=== PATIENT | female | born 1970 | race African-American/Black ===

== ENCOUNTER 2016-06-14 03:22 | Emergency (ER) | payer OTHER ==
[~2016-06-14] VITALS: Ht 157.5 cm; Wt 92.5 kg
--- NOTE | 2016-06-14 03:22 | NUR ---
Patient [facility] and taken to [facility]
[2016-06-14 03:26] VITALS: BP 122/95
--- NOTE | 2016-06-14 03:27 | NUR ---
Dr. William evaluating patient at bedside.
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
--- NOTE | 2016-06-14 03:40 | NUR ---
Patient to CT via wheelchair per tech.
--- NOTE | 2016-06-14 04:29 | NUR ---
PATIENT BIB [facility]. PATIENT EXAMINED BY DR. GUADARRAMA. PATIENT MEDICALLY CLEARED AND RELEASED IN CUSTODY IN STABLE CONDITION. ORIGINAL PRE-BOOK FORM GIVEN TO [facility] OFFICER.
[2016-06-14 04:34] VITALS: BP 122/95
== END 2016-06-14 04:29 ==
LOC: MED 03:22
DX: S09.90XA Unspecified injury of head, initial encounter (principal); R51 Headache; V89.2XXA Person injured in unspecified motor-vehicle accident, traffic, initial encounter; Y93.89 Activity, other specified; Y92.89 Other specified places as the place of occurrence of the external cause; Y99.8 Other external cause status

== ENCOUNTER 2016-06-15 15:30 | Emergency (ER) | payer OTHER ==
[~2016-06-15] VITALS: Ht 160 cm; Wt 86.2 kg
[2016-06-15 15:50] VITALS: BP 143/77
--- NOTE | 2016-06-15 16:58 | NUR ---
PT TO BED 3 AT THIS TIME,
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
--- NOTE | 2016-06-15 17:33 | NUR ---
ER MD DR. BLANC EVALUATING PT AT BEDSIDE.
[2016-06-15 17:42] VITALS: BP 140/74
--- NOTE | 2016-06-15 17:42 | NUR ---
Patient discharged with v/s stable. Written and verbal after care instructions given and explained. Patient alert, oriented and verbalized understanding of instructions. Ambulatory with to car. All questions addressed prior to discharge. ID band removed. Patient advised to follow up with PMD. Rx of MOTRIN 800MG & FLEXERIL 10MG TAB given. Patient educated on indication of medication including possible reaction and side effects. Opportunity to ask questions provided and answered.
== END 2016-06-15 17:42 | disposition home or self-care (01) ==
LOC: MED 15:30
DX: S13.4XXA Sprain of ligaments of cervical spine, initial encounter (principal); R03.0 Elevated blood-pressure reading, without diagnosis of hypertension; V89.2XXA Person injured in unspecified motor-vehicle accident, traffic, initial encounter; Y93.89 Activity, other specified; Y92.89 Other specified places as the place of occurrence of the external cause; Y99.8 Other external cause status

== ENCOUNTER 2016-07-31 23:04 | Emergency (ER) | payer OTHER ==
[~2016-07-31] VITALS: Ht 157.5 cm; Wt 90.7 kg
[2016-07-31 23:05] VITALS: BP 152/90
--- NOTE | 2016-07-31 23:05 | NUR ---
AMBULATED TO ER BED 7
--- NOTE | 2016-07-31 23:15 | NUR ---
46 YEAR OLD FEMALE CAME IN WITH ABDOMINAL PAIN 02/10 SINCE 4PM. VOMITING NOTED. ONLY SOFT STOOLS, NO DIARRHEA. SEEN BY DR. GARCIA AT BEDSIDE.
[2016-07-31] MEDS ORDERED: ONDANSETRON 4 MG ODT PO ONE (23:20)
[2016-07-31] MEDS ORDERED: MORPHINE SULFATE 2 MG/ML SYR IVP ONE (23:35)
--- NOTE | 2016-07-31 23:37 | NUR ---
WENT FOR XRAY PER WHEELCHAIR.
--- NOTE | 2016-08-01 01:00 | NUR ---
ULTRASOUND DONE AT BEDSIDE BY DR. GA.
[2016-08-01] MEDS ORDERED: ALUMINUM HYD/MAG/SIMETHICONE 30 ML UDC PO ONE (01:15)
[2016-08-01] MEDS ORDERED: LIDOCAINE VISCOUS 2% 20 ML UDC PO ONE (01:15)
--- NOTE | 2016-08-01 01:31 | NUR ---
FOR CAT SCAN OF ABDOMEN/PELVIS WITH CONTRAST, PROCEDURE EXPLAINED BY DR. GA AT BEDSIDE. CONSENT SIGNED BY THE PATIENT.
[2016-08-01] MEDS ORDERED: HYDROcodone/APAP 10/325 MG 1 TAB TAB PO ONE (02:55)
[2016-08-01 04:10] VITALS: BP 135/79
--- NOTE | 2016-08-01 04:10 | NUR ---
Patient discharged with v/s stable. Written and verbal after care instructions given and explained WITH RX KESTEPHANIE AND NORCO. Patient verbalized understanding. Ambulatory with steady gait. All questions addressed prior to discharge. Advised to follow up with PMD. DISCHARGED PER DR. GA.
== END 2016-08-01 04:10 | disposition home or self-care (01) ==
LOC: MED 23:04
DX: N12 Tubulo-interstitial nephritis, not specified as acute or chronic (principal)
CPT/HCPCS: 36415; 74000; 74177; 80053; 81001; 82150; 83690; 84703; 85025; 87086; 96374; 99285; J2270; Q9967; S0119

== ENCOUNTER 2017-11-09 17:48 | Emergency (ER) | payer OTHER ==
[~2017-11-09] VITALS: Ht 157.5 cm; Wt 95.7 kg
[2017-11-09 18:00] VITALS: BP 128/87
--- NOTE | 2017-11-09 18:05 | NUR ---
patient to lobby to wait available bed with steady gait. vss.
--- NOTE | 2017-11-09 18:40 | NUR ---
pt wc to bed 9
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
--- NOTE | 2017-11-09 19:56 | NUR ---
GAVE REPORT TO BERNICE GREY
--- NOTE | 2017-11-09 20:00 | NUR ---
PATIENT RESTING AT THIS TIME. NO SIGNS OF DISTRESS.
--- NOTE | 2017-11-09 20:01 | NUR ---
Dr. Ventura evaluating patient at bedside.
[2017-11-09] MEDS ORDERED: IBUPROFEN 600 MG TAB PO ONE (20:45)
--- NOTE | 2017-11-09 20:50 | NUR ---
X-Ray at bedside.
--- NOTE | 2017-11-09 21:28 | NUR ---
PT TAKEN TO CT
--- NOTE | 2017-11-09 21:43 | NUR ---
PT RETURN FROM CT
[2017-11-09 23:10] VITALS: BP 118/84
== END 2017-11-09 23:10 | disposition home or self-care (01) ==
LOC: MED 17:48
DX: S60.222A Contusion of left hand, initial encounter (principal); S80.02XA Contusion of left knee, initial encounter; S80.01XA Contusion of right knee, initial encounter; M54.5 Low back pain; W01.0XXA Fall on same level from slipping, tripping and stumbling without subsequent striking against object, initial encounter; Y93.89 Activity, other specified; Y99.8 Other external cause status; Y92.512 Supermarket, store or market as the place of occurrence of the external cause
CPT/HCPCS: 72125; 72131; 73130; 73562; 81002; 81025; 99284

== ENCOUNTER 2021-01-02 10:02 | Emergency (ER) | payer OTHER ==
[~2021-01-02] VITALS: Ht 160 cm; Wt 99.8 kg
--- NOTE | 2021-01-02 10:10 | NUR ---
PT W/C ASSISTED TO BED 3
[2021-01-02 10:11] VITALS: BP 131/76
--- NOTE | 2021-01-02 10:13 | NUR ---
50 Y/O FEMALE C/O LEFT ANKLE PAIN 11/10 DESCRIBES SHARP UNABLE TO BEAR WEIGHT S/P FALL [id number] GO AT HOME. DENIES FEVER/CHILLS, DENIES N/V. DENIES PMH NKA
--- NOTE | 2021-01-02 10:23 | NUR ---
DR. SALAS AT PT BEDSIDE FOR FURTHER EVALUATION.
[2021-01-02] MEDS ORDERED: KETOROLAC 30 MG/ML VIAL IM ONE (10:25)
--- NOTE | 2021-01-02 10:34 | NUR ---
PT TAKEN XR VIA W/C.
--- NOTE | 2021-01-02 11:24 | NUR ---
AT PT BEDSIDE FOR RE-ASSESSMENT.
--- NOTE | 2021-01-02 11:24 | NUR ---
Mone singh in [facility] - 01/02/21 at 1148 by [email or web address] PT AT PT BEDSIDE FOR RE-ASSESSMENT.
[2021-01-02] MEDS ORDERED: ACET-10509 PO ×2 (11:31→11:45)
[2021-01-02] MEDS ORDERED: IBUP-2230 PO ×2 (11:31→11:45)
--- NOTE | 2021-01-02 11:48 | NUR ---
EMT AT PT BEDSIDE FOR JENNIFER [employer]AP [employer] TRAINING.
[2021-01-02 11:53] VITALS: BP 126/74
--- NOTE | 2021-01-02 11:55 | NUR ---
Patient discharged with v/s stable. Written and verbal after care instructions given ANKLE SPRAIN and explained. Patient alert, oriented and verbalized understanding of instructions. Ambulatory with to car. All questions addressed prior to discharge. ID band removed. Patient advised to follow up with PMD. Rx of IBUPROFEN AND TYNENOL PO given. Patient educated on indication of medication including possible reaction and side effects. Opportunity to ask questions provided and answered.
== END 2021-01-02 11:55 | disposition home or self-care (01) ==
LOC: MED 10:02
DX: S93.402A Sprain of unspecified ligament of left ankle, initial encounter (principal); Z79.899 Other long term (current) drug therapy; X58.XXXA Exposure to other specified factors, initial encounter; Y93.01 Activity, walking, marching and hiking; Y92.89 Other specified places as the place of occurrence of the external cause; Y99.8 Other external cause status
CPT/HCPCS: 73590; 73610; 96372; 99284; J1885

== ENCOUNTER 2023-01-06 19:17 | Emergency (ER) | payer OTHER ==
[~2023-01-06] VITALS: Ht 160 cm; Wt 96.6 kg
[~2023-01-06 19:17] MED LIST: ACET-10509 PO; IBUP-2230 PO
[2023-01-06 20:17] VITALS: BP 160/89; PULSE 73; RESP 18; TEMP 98.4; O2SAT 100
[2023-01-06] MEDS ORDERED: MORPHINE SULFATE 2 MG/ML SYR IVP ONE (20:45)
[2023-01-06] MEDS ORDERED: FAMOTIDINE 20 MG/2 ML VIAL IVP ONE (20:45)
[2023-01-06] MEDS ORDERED: ONDANSETRON 4 MG/2 ML VIAL IVP ONE (20:45)
[2023-01-06 21:08] LABS: BASOPHILS # (AUTO) 0.1 K/uL (0.00-0.22); BASOPHILS % (AUTO) 0.6 % (0.0-2.0); EOSINOPHILS % (AUTO) 0.2 % (0.0-4.0); HEMATOCRIT 38.4 % (36-48); HEMOGLOBIN 12.6 g/dL (12.0-16.0); LYMPHOCYTES # (AUTO) 1.7 K/uL (2.5-16.5); LYMPHOCYTES % (AUTO) 16.3 % (20.5-51.1); MEAN CORPUSCULAR HEMOGLOBIN 29 pg (27-31); MEAN CORPUSCULAR HGB CONC 33 g/dL (33-37); MEAN CORPUSCULAR VOLUME 87.1 fL (80-94); MONOCYTES # (AUTO) 0.6 K/uL (0.8-1.0); MONOCYTES % (AUTO) 5.6 % (1.7-9.3); NEUTROPHILS # (AUTO) 7.9 K/uL (1.8-7.7); NEUTROPHILS % (AUTO) 77.3 % (42.2-75.2); PLATELET COUNT (AUTO) 215 K/uL (140-450); RED BLOOD CELL COUNT(AUTO) 4.41 MIL/uL (4.20-5.40); RED CELL DISTRIBUTION WIDTH 16.1 % (11.6-13.7); WHITE BLOOD COUNT (AUTO) 10.3 K/uL (4.8-10.8)
[2023-01-06 21:11] VITALS: BP 165/83; PULSE 68; RESP 21; O2SAT 95
[2023-01-06 21:43] LABS: ALANINE AMINOTRANSFERASE 21 U/L (12-78); ALKALINE PHOSPHATASE 50 U/L (50-136); ANION GAP 13.3 (8-16); ASPARTATE AMINOTRANSFERASE 18 U/L (15-37); CALCIUM 8.9 mg/dL (8.5-10.1); CARBON DIOXIDE 25.4 mmol/L (21-32); CHLORIDE 101 mmol/L (98-107); GFR ARICAN-AMERICAN 75 mL/min (>90); GFR NON ARICAN-AMERICAN 62 mL/min (>90); GLUCOSE 100 mg/dL (74-106); LIPASE 32 U/L (73-393); POTASSIUM 3.7 mmol/L (3.5-5.1); SODIUM SERUM 136 mmol/L (136-145); TOTAL BILIRUBIN 0.6 mg/dL (0.0-1.0); TOTAL PROTEIN, SERUM 7.7 g/dL (6.4-8.2); UREA NITROGEN, BLOOD 10 mg/dL (7-18)
[2023-01-06] MEDS ORDERED: ALUMINUM HYD/MAG/SIMETHICONE 30 ML UDC PO ONE (21:55)
[2023-01-06] MEDS ORDERED: OMEP40EC23 PO (22:34)
[2023-01-06] MEDS ORDERED: ALUM355S5 PO (22:34)
[2023-01-06] MEDS ORDERED: SUCR1TAB35 PO (22:34)
[2023-01-06] MEDS ORDERED: ONDA-188 PO (22:34)
== END 2023-01-06 22:50 | disposition home or self-care (01) ==
LOC: MED 19:17
DX: K21.9 Gastro-esophageal reflux disease without esophagitis (principal); Z79.899 Other long term (current) drug therapy
CPT/HCPCS: 36415; 71045; 80053; 83690; 84484; 85025; 93005; 96374; 96375; 99285; J2270; J2405; J3490

== ENCOUNTER 2023-05-28 08:15 | Inpatient (IN) | payer OTHER ==
[~2023-05-28] VITALS: Ht 160 cm; Wt 97.5 kg
[~2023-05-28 08:15] MED LIST changes: +MAG-43 PO; +OMEP40EC23 PO; +ONDA-188 PO; +SUCR1TAB35 PO
[2023-05-28 08:20] VITALS: BP 145/83; PULSE 72; RESP 18; TEMP 97.3; O2SAT 99
[2023-05-28] MEDS ORDERED: KETOROLAC 30 MG/ML VIAL IVP ONE (08:40)
[2023-05-28] MEDS ORDERED: ONDANSETRON 4 MG/2 ML VIAL IVP ONE ×2 (08:40→12:30)
[2023-05-28 08:59] LABS: BASOPHILS % (AUTO) 0.2 % (0.0-2.0); EOSINOPHILS # (AUTO) 0.1 K/uL (0-0.4); EOSINOPHILS % (AUTO) 1.3 % (0.0-4.0); HEMATOCRIT 37.3 % (36-48); HEMOGLOBIN 12.4 g/dL (12.0-16.0); LYMPHOCYTES # (AUTO) 1.3 K/uL (2.5-16.5); LYMPHOCYTES % (AUTO) 15.3 % (20.5-51.1); MEAN CORPUSCULAR HEMOGLOBIN 28 pg (27-31); MEAN CORPUSCULAR HGB CONC 33 g/dL (33-37); MEAN CORPUSCULAR VOLUME 84.9 fL (80-94); MONOCYTES # (AUTO) 0.5 K/uL (0.8-1.0); MONOCYTES % (AUTO) 6.1 % (1.7-9.3); NEUTROPHILS # (AUTO) 6.6 K/uL (1.8-7.7); NEUTROPHILS % (AUTO) 77.1 % (42.2-75.2); PLATELET COUNT (AUTO) 238 K/uL (140-450); RED BLOOD CELL COUNT(AUTO) 4.39 MIL/uL (4.20-5.40); RED CELL DISTRIBUTION WIDTH 17.2 % (11.6-13.7); WHITE BLOOD COUNT (AUTO) 8.6 K/uL (4.8-10.8)
[2023-05-28 09:00] VITALS: O2SAT 99
[2023-05-28] MEDS: NACL 0.9% 1,000 ML IV SCH ×3 (09:28→13:40)
[2023-05-28 09:41] LABS: APPEARANCE,URINE SL CLOUDY (CLEAR); BILIRUBIN,URINE 1+ (NEGATIVE); BLOOD, URINE 3+ (NEGATIVE); COLOR,URINE RED (YELLOW); LEUKOCYTE ESTERASE ,URINE 1+ (NEGATIVE); NITRITE, URINE POSITIVE (NEGATIVE); PROTEIN,URINE 2+ (NEGATIVE); UGLUCOSE NEGATIVE (NEGATIVE); UROBILINOGEN,URINE 0.2 EU/dL (0.2 - 1)
[2023-05-28 09:43] LABS: ANION GAP 12.1 (8-16); CALCIUM 8.5 mg/dL (8.5-10.1); CARBON DIOXIDE 23.7 mmol/L (21-32); CREATININE 0.8 mg/dL (0.6-1.3); POTASSIUM 3.8 mmol/L (3.5-5.1)
[2023-05-28 09:47] LABS: ICTOTEST NEGATIVE (NEGATIVE)
[2023-05-28 09:49] LABS: ALBUMIN 3.5 g/dL (3.4-5.0); BILIRUBIN,DIRECT 0.1 mg/dL (0.0-0.3); TOTAL BILIRUBIN 0.3 mg/dL (0.0-1.0); TOTAL PROTEIN, SERUM 8.2 g/dL (6.4-8.2)
[2023-05-28 09:49] LABS: RBC,URINE >100 /HPF (0-5)
[2023-05-28 09:50] LABS: BACTERIA,URINE 1+ /HPF (None Seen); MUCUS,URINE None Seen /LPF (None Seen); SQUAMOUS EPITHELIAL CELL,UR 0-3 (FEW) /LPF (0-3 (FEW))
[2023-05-28] MEDS ORDERED: PIPERACILLIN/TAZOBACTAM 3.375 GM in DEXTROSE 5% 50 ML IV ONE (12:15)
[2023-05-28] MEDS ORDERED: PIPERACILLIN/TAZOBACTAM 3.375 GM VIAL IV ONE (12:25)
[2023-05-28] MEDS ORDERED: MORPHINE SULFATE 4 MG/ML SYR IVP ONE (12:30)
[2023-05-28 13:10] LABS: LACTIC ACID 0.9 mmol/L (0.4-2.0)
[2023-05-28] MEDS ORDERED: CLAR500T99 PO (13:26)
[2023-05-28] MEDS ORDERED: ONDANSETRON 4 MG/2 ML VIAL IVP PRN ×2 (13:40→17:25)
[2023-05-28] MEDS ORDERED: ZOLPIDEM 5 MG TAB PO PRN (13:40)
[2023-05-28] MEDS ORDERED: NEOSTIGMINE 1:1000 10 MG/10 ML VIAL ONE (16:00)
[2023-05-28] MEDS ORDERED: SEVOFLURANE 250 ML BTL INH ONE (16:00)
[2023-05-28] MEDS ORDERED: GLYCOPYRROLATE 0.2 MG/ML VIAL ONE (16:00)
[2023-05-28] MEDS ORDERED: LIDOCAINE/EPI 1% 1:100000 20 ML VIAL INJ ONE (16:11)
[2023-05-28] MEDS ORDERED: BUPIVACAINE-MPF 0.25% 30 ML VIAL INJ ONE (16:11)
[2023-05-28] MEDS ORDERED: ceFAZolin 2,000 MG VIAL ONE (16:12)
[2023-05-28] MEDS ORDERED: ROCURONIUM 50 MG/5 ML VIAL IV ONE (16:21)
[2023-05-28] MEDS ORDERED: PROPOFOL 200 MG/20 ML VIAL IV ONE (16:21)
[2023-05-28] MEDS ORDERED: SUCCINYLCHOLINE CHLORIDE 200 MG/10 ML VIAL IVP ONE (16:21)
[2023-05-28] MEDS ORDERED: MIDAZOLAM 2 MG/2 ML VIAL ONE (16:22)
[2023-05-28] MEDS ORDERED: HYDROmorphone PFS 2 MG/ML SYR ONE (16:23)
[2023-05-28] MEDS ORDERED: DEXAMETHASONE 4 MG/ML VIAL ONE (16:38)
[2023-05-28] MEDS ORDERED: ONDANSETRON 4 MG/2 ML VIAL ONE (16:38)
[2023-05-28] MEDS ORDERED: KETOROLAC 60 MG/2 ML VIAL IM ONE (17:14)
[2023-05-28] MEDS ORDERED: HYDROmorphone 1 MG/ML AMP IVP PRN (17:25)
[2023-05-28 18:00] VITALS: BP 154/82; PULSE 67; RESP 18; TEMP 97.2; O2SAT 98
[2023-05-28] MEDS: HYDROcodone/APAP 5/325 MG 1 TAB TAB PO PRN ×2 (18:37→23:15)
[2023-05-28 19:00] VITALS: PULSE 62; O2SAT 99
[2023-05-28 20:00] VITALS: BP 154/76; PULSE 62; RESP 18; TEMP 97.4; O2SAT 99
[2023-05-29 04:00] VITALS: BP 146/49; PULSE 67; RESP 18; TEMP 96.4; O2SAT 99
[2023-05-29] MEDS: HYDROcodone/APAP 5/325 MG 1 TAB TAB PO PRN ×4 (05:22→20:37)
[2023-05-29 08:00] VITALS: BP 165/75; PULSE 59; RESP 18; TEMP 97.4; O2SAT 100; O2SAT 99
[2023-05-29] MEDS: LEVOFLOXACIN 750 MG/D5W PREMIX 150 ML IV SCH (09:56)
[2023-05-29] MEDS: DOCUSATE SODIUM 100 MG GELCAP PO SCH (09:57)
[2023-05-29 12:00] VITALS: BP 165/75; PULSE 59; RESP 18; TEMP 97.4; O2SAT 99
[2023-05-29] MEDS: PANTOPRAZOLE 40 MG INJ VIAL IVP SCH (12:42)
[2023-05-29] MEDS: NACL 0.9% 1,000 ML IV SCH ×2 (14:40→20:48)
[2023-05-29 16:00] VITALS: BP 140/68; PULSE 61; RESP 18; TEMP 99; O2SAT 100
[2023-05-29] MEDS ORDERED: KETOROLAC 30 MG/ML VIAL IVP ONE (17:40)
[2023-05-29] MEDS ORDERED: KETOROLAC 15 MG/ML VIAL IVP SCH (17:50)
[2023-05-29 20:00] VITALS: BP 137/79; PULSE 73; RESP 18; TEMP 98.6; O2SAT 100; O2SAT 99
[2023-05-29] MEDS: LORazepam 1 MG TAB PO PRN (20:38)
[2023-05-30] VITALS: BP 131/75; PULSE 61; RESP 18; TEMP 97.4; O2SAT 100
[2023-05-30] MEDS: MORPHINE SULFATE 2 MG/ML SYR IVP PRN ×2 (03:01→10:23)
[2023-05-30] MEDS: LORazepam 1 MG TAB PO PRN (03:03)
[2023-05-30] MEDS: NACL 0.9% 1,000 ML IV SCH ×2 (03:06→15:40)
[2023-05-30 05:38] LABS: BASOPHILS % (AUTO) 0.3 % (0.0-2.0); EOSINOPHILS # (AUTO) 0.1 K/uL (0-0.4); EOSINOPHILS % (AUTO) 0.8 % (0.0-4.0); HEMATOCRIT 33.6 % (36-48); HEMOGLOBIN 11.3 g/dL (12.0-16.0); LYMPHOCYTES # (AUTO) 2.3 K/uL (2.5-16.5); LYMPHOCYTES % (AUTO) 23.8 % (20.5-51.1); MEAN CORPUSCULAR HEMOGLOBIN 28 pg (27-31); MEAN CORPUSCULAR HGB CONC 34 g/dL (33-37); MEAN CORPUSCULAR VOLUME 84.5 fL (80-94); MONOCYTES # (AUTO) 0.7 K/uL (0.8-1.0); MONOCYTES % (AUTO) 7.4 % (1.7-9.3); NEUTROPHILS # (AUTO) 6.6 K/uL (1.8-7.7); NEUTROPHILS % (AUTO) 67.7 % (42.2-75.2); PLATELET COUNT (AUTO) 213 K/uL (140-450); RED BLOOD CELL COUNT(AUTO) 3.98 MIL/uL (4.20-5.40); RED CELL DISTRIBUTION WIDTH 16.8 % (11.6-13.7); WHITE BLOOD COUNT (AUTO) 9.7 K/uL (4.8-10.8)
[2023-05-30 06:23] LABS: ALBUMIN 2.8 g/dL (3.4-5.0); CALCIUM 8.6 mg/dL (8.5-10.1); CARBON DIOXIDE 25.6 mmol/L (21-32); CREATININE 0.8 mg/dL (0.6-1.3); POTASSIUM 3.6 mmol/L (3.5-5.1); TOTAL BILIRUBIN 0.3 mg/dL (0.0-1.0); TOTAL PROTEIN, SERUM 7.1 g/dL (6.4-8.2)
[2023-05-30 08:00] VITALS: PULSE 64; RESP 16; O2SAT 99
[2023-05-30] MEDS: LEVOFLOXACIN 750 MG/D5W PREMIX 150 ML IV SCH (09:16)
[2023-05-30] MEDS: PANTOPRAZOLE 40 MG INJ VIAL IVP SCH (09:17)
[2023-05-30] MEDS: DOCUSATE SODIUM 100 MG GELCAP PO SCH (09:17)
[2023-05-30] MEDS ORDERED: LEVO750T75 PO (16:55)
[2023-05-30] MEDS ORDERED: ACET-9525 PO (16:56)
[2023-05-30] MEDS ORDERED: IBUP-2213 PO (17:02)
[2023-05-30 18:30] VITALS: BP 100/70; PULSE 64; RESP 18; TEMP 97.4
== END 2023-05-30 20:35 | disposition home or self-care (01) | DRG 263 ==
LOC: MED 08:15 → MMU 13:40
PROVIDERS: ADMIT Student in an Organized Health Care Education/Training Program; ATTEND Student in an Organized Health Care Education/Training Program
PROC: 0DNU4ZZ Release Omentum, Percutaneous Endoscopic Approach (ICD-10-PCS; 2023-05-28)
PROC: 0FT44ZZ Resection of Gallbladder, Percutaneous Endoscopic Approach (ICD-10-PCS; principal; 2023-05-28 14:45)
DX: K81.0 Acute cholecystitis (principal); I10 Essential (primary) hypertension; N39.0 Urinary tract infection, site not specified
CPT/HCPCS: 36415; 71045; 76705; 80048; 80053; 80076; 81001; 82150; 83036; 83605; 83690; 84484; 85025; 87040; 87081; 87086; 88304; 93005; 96365; 96375; 96376; 99285; C9113; J0330; J1100; J1170; J1885; J1956; J2001; J2250; J2270; J2405; J2543; J2704; J2710; J3490; Q0092

== ENCOUNTER 2024-02-17 22:58 | Emergency (ER) | payer OTHER ==
[~2024-02-17] VITALS: Ht 162.6 cm; Wt 96.2 kg
[~2024-02-17 22:58] MED LIST changes: -ACET-10509 PO; +ACET-9525 PO; +ACET500T99 PO; +IBUP-2213 PO; +LEVO750T75 PO; +SUCR-3 PO; -SUCR1TAB35 PO
[2024-02-17 23:05] VITALS: BP 118/69; PULSE 63; RESP 16; TEMP 97.9; O2SAT 98
[2024-02-17 23:28] LABS: BASOPHILS % (AUTO) 0.4 % (0.0-2.0); EOSINOPHILS # (AUTO) 0.1 K/uL (0-0.4); EOSINOPHILS % (AUTO) 1.3 % (0.0-4.0); HEMOGLOBIN 11.1 g/dL (12.0-16.0); LYMPHOCYTES # (AUTO) 2.8 K/uL (2.5-16.5); LYMPHOCYTES % (AUTO) 38.4 % (20.5-51.1); MEAN CORPUSCULAR HEMOGLOBIN 28 pg (27-31); MEAN CORPUSCULAR HGB CONC 33 g/dL (33-37); MEAN CORPUSCULAR VOLUME 85.5 fL (80-94); MONOCYTES # (AUTO) 0.4 K/uL (0.8-1.0); MONOCYTES % (AUTO) 5.8 % (1.7-9.3); NEUTROPHILS # (AUTO) 3.9 K/uL (1.8-7.7); NEUTROPHILS % (AUTO) 54.1 % (42.2-75.2); PLATELET COUNT (AUTO) 199 K/uL (140-450); RED BLOOD CELL COUNT(AUTO) 3.98 MIL/uL (4.20-5.40); WHITE BLOOD COUNT (AUTO) 7.2 K/uL (4.8-10.8)
[2024-02-17 23:41] LABS: ANION GAP 8.6 (8-16); CALCIUM 8.9 mg/dL (8.5-10.1); CARBON DIOXIDE 30.1 mmol/L (21-32); CREATININE 0.9 mg/dL (0.6-1.3); POTASSIUM 3.7 mmol/L (3.5-5.1)
[2024-02-17 23:44] LABS: INR 0.97 (0.8-1.2); PARTIAL THROMBOPLASTIN TIME 23.4 secs (22-35.6); PROTHROMBIN TIME 10.2 secs (10.8-13.4)
[2024-02-17] MEDS: ALUMINUM HYD/MAG/SIMETHICONE 30 ML UDC PO ONE (23:47)
[2024-02-17] MEDS: IBUPROFEN 800 MG TAB PO ONE (23:48)
[2024-02-18] MEDS ORDERED: FERR325E14 PO (00:17)
[2024-02-18 00:45] VITALS: BP 119/59; PULSE 67; RESP 13; TEMP 97.9; O2SAT 98
== END 2024-02-18 00:45 | disposition home or self-care (01) ==
LOC: MED 22:58
DX: R07.89 Other chest pain (principal); D64.9 Anemia, unspecified; R51.9 Headache, unspecified; M54.50 Low back pain, unspecified; K21.9 Gastro-esophageal reflux disease without esophagitis; E78.00 Pure hypercholesterolemia, unspecified; Z90.49 Acquired absence of other specified parts of digestive tract; Z79.899 Other long term (current) drug therapy
CPT/HCPCS: 36415; 71045; 80048; 83880; 84484; 85025; 85610; 85730; 93005; 99285; Q0092